=== PATIENT | female | born 1985 | race Caucasian/White ===

== ENCOUNTER 2018-02-07 14:25 | Outpatient (CLI) | payer MEDICAID ==
[~2018-02-07 14:25] MED LIST: IBUP-1051 PO
== END 2018-02-07 23:59 | disposition home or self-care (01) ==
LOC: RAD 14:25
PROVIDERS: ATTEND Family Medicine
DX: G40.909 Epilepsy, unspecified, not intractable, without status epilepticus (principal); F17.200 Nicotine dependence, unspecified, uncomplicated; Z98.890 Other specified postprocedural states; Z88.0 Allergy status to penicillin; Z88.1 Allergy status to other antibiotic agents
CPT/HCPCS: 95816

== ENCOUNTER 2019-11-19 15:39 | Inpatient (IN) | payer MEDICAID ==
[~2019-11-19] VITALS: Ht 175.3 cm; Wt 140.5 kg
[2019-11-19] MEDS ORDERED: normal saline 1000ML IV soln IV ONE (17:40)
[2019-11-19] MEDS ORDERED: clindamycin 600mg/D5W 50ml 50 ML IV ONE (17:40)
[2019-11-19 18:16] LABS: BASOPHILS % (AUTO) 0.2 % (0-1); EOSINOPHILS # (AUTO) 0.1 X10'3 (0-0.9); EOSINOPHILS % (AUTO) 0.4 % (0-6); HEMATOCRIT 37.5 % (35.0-45.0); HEMOGLOBIN 12.5 g/dl (12.0-16.0); LYMPHOCYTES # (AUTO) 1.5 X10'3 (1.1-4.8); LYMPHOCYTES % (AUTO) 6.9 % (21-51); MEAN CORPUSCULAR HEMOGLOBIN 29.3 PG (27.0-31.0); MEAN CORPUSCULAR HGB CONC 33.5 g/dL (33.0-36.5); MEAN CORPUSCULAR VOLUME 87.6 FL (78-98); MEAN PLATELET VOLUME 7.5 FL (7.4-10.4); MONOCYTES # (AUTO) 0.7 X10'3 (0-0.9); MONOCYTES % (AUTO) 3.2 % (2-12); NEUTROPHILS # (AUTO) 19.5 X10'3 (1.8-7.7); NEUTROPHILS % (AUTO) 89.3 % (42-75); PLATELET COUNT 280 X10'3 (140-440); RED BLOOD COUNT 4.28 X10'6 (4.20-5.60); RED CELL DISTRIBUTION WIDTH 12.7 % (11.5-14.5); WHITE BLOOD COUNT 21.8 X10'3 (4.5-11.0)
[2019-11-19 18:33] LABS: ALANINE AMINOTRANSFERASE 24 U/L (12-78); ALBUMIN 3.1 G/DL (3.4-5.0); ALBUMIN/GLOBULIN RATIO 0.8 (1.1-1.5); ALKALINE PHOSPHATASE 77 IU/L (46-116); ANION GAP 6 (8-16); BILIRUBIN,TOTAL 0.6 MG/DL (0.1-1.0); BLOOD UREA NITROGEN 9 MG/DL (7-18); BUN/CREATININE RATIO 9.5 (6.6-38.0); CALCIUM 9.3 MG/DL (8.5-10.1); CHLORIDE 99 MMOL/L (99-107); CREATININE 0.95 MG/DL (0.40-0.90); GLUCOSE 104 MG/DL (70-104); SODIUM 133 MMOL/L (135-145); TOTAL CARBON DIOXIDE 28.1 MMOL/L (24-32); eGFR 68 ML/MIN
[2019-11-19 18:35] LABS: ASPARTATE AMINO TRANSFERASE 17 U/L (10-37)
[2019-11-19 18:43] LABS: POTASSIUM 2.9 MMOL/L (3.5-5.1)
[2019-11-19] MEDS ORDERED: potassium Cl 10 mEq/100mL bag IV ONE (18:45)
[2019-11-19 19:12] LABS: MAGNESIUM 1.9 MG/DL (1.5-2.4)
[2019-11-19 19:12] LABS: URINE HCG NEGATIVE (NEG)
[2019-11-19] MEDS ORDERED: magnesium 2GM in 50ml NS 50 ML IV PRN (20:25)
[2019-11-19] MEDS ORDERED: potassium Cl 20 mEq SR tablet PO PRN (20:25)
[2019-11-19] MEDS ORDERED: ondansetron/PF 4mg/2ml inj IV PRN (20:25)
[2019-11-19] MEDS ORDERED: acetaminophen 325mg tablet PO PRN ×2 (20:25)
[2019-11-19] MEDS ORDERED: HYDROcodone/acetaminophen 5mg/325mg tablet PO PRN (20:25)
[2019-11-19] MEDS ORDERED: mag hydrox/Alum hydrox/simeth 30ml oral suspension PO PRN (20:25)
[2019-11-19] MEDS ORDERED: magnesium 4gm in 100ml NS 100 ML IV PRN (20:25)
[2019-11-19] MEDS ORDERED: vancomycin inj 1,000 MG in normal saline 250ml IV soln 250 ML IV ONE (20:25)
[2019-11-19] MEDS ORDERED: magnesium hydroxide 30ml (MOM) UD suspension PO PRN (20:25)
[2019-11-19] MEDS ORDERED: potassium CL 10mEq/100ml bag 100 ML IV PRN ×2 (20:25)
[2019-11-19] MEDS: normal saline 1000ml 1,000 ML IV SCH (21:22)
[2019-11-19] MEDS: VANCOmycin 1250MG/NS 250ml Bag 250 ML IV SCH (21:22)
[2019-11-19] MEDS: HYDROcodone/acetaminophen 10/325mg tab PO PRN (21:23)
[2019-11-19 23:08] LABS: CLARITY,URINE CLOUDY (Clear); COLOR,URINE YELLOW (Yellow); GLUCOSE, URINE NEGATIVE (Neg); KETONES,URINE NEGATIVE (Neg); LEUKOCYTE ESTERASE ,URINE NEGATIVE (Neg); NITRITES, URINE NEGATIVE (Neg); OCCULT BLOOD,URINE NEGATIVE (Neg); PH,URINE 5.5 (4.8-8.0); PROTEIN,URINE TRACE mg/dl (Neg); UA COLLECTION TYPE NON-SPECIFIED; UROBILINOGEN,URINE 0.2 E.U/dL (0.2-1.0)
[2019-11-19 23:13] LABS: AMORPHOUS URATES 3+; BACTERIA,URINE NONE SEEN /HPF (Neg); RBC,URINE NONE SEEN /HPF (0-2); SQUAMOUS EPITHELIAL CELL,UR MODERATE /LPF (FEW); WBC,URINE 0-4 /HPF (0-4)
--- NOTE | 2019-11-20 02:16 | NUR ---
pt requested snack as did not eat much food yesterday. apple juice and sandwich provided.
[2019-11-20] MEDS: HYDROcodone/acetaminophen 10/325mg tab PO PRN ×2 (05:24→14:12)
--- NOTE | 2019-11-20 05:31 | NUR ---
pt woke to use bathroom and reports 8/10 pain in bilateral legs, more so with the left leg. norco 10/325 administered as prn order states.
[2019-11-20] MEDS: normal saline 1000ml 1,000 ML IV SCH ×2 (06:21→08:32)
--- NOTE | 2019-11-20 06:30 | NUR ---
patient received on bed asleep on high fowlers.
[2019-11-20 07:00] VITALS: BP 133/63
[2019-11-20 07:16] VITALS: BP 107/56
[2019-11-20] MEDS: K and/or MAG REPLACEMENT MC SCH ×2 (07:41→20:00)
[2019-11-20] MEDS: cefepime 2g/NS 100ml ADVANTAGE 100 ML IV SCH ×2 (08:32→20:01)
[2019-11-20 08:56] LABS: BASOPHILS % (AUTO) 0.1 % (0-1); EOSINOPHILS # (AUTO) 0.2 X10'3 (0-0.9); EOSINOPHILS % (AUTO) 1.7 % (0-6); LYMPHOCYTES # (AUTO) 1.1 X10'3 (1.1-4.8); LYMPHOCYTES % (AUTO) 8.2 % (21-51); MEAN CORPUSCULAR HEMOGLOBIN 29.5 PG (27.0-31.0); MEAN CORPUSCULAR HGB CONC 33.5 g/dL (33.0-36.5); MEAN CORPUSCULAR VOLUME 88.1 FL (78-98); MEAN PLATELET VOLUME 7.8 FL (7.4-10.4); MONOCYTES # (AUTO) 0.8 X10'3 (0-0.9); MONOCYTES % (AUTO) 5.4 % (2-12); NEUTROPHILS # (AUTO) 11.9 X10'3 (1.8-7.7); NEUTROPHILS % (AUTO) 84.6 % (42-75); PLATELET COUNT 245 X10'3 (140-440); RED BLOOD COUNT 3.74 X10'6 (4.20-5.60)
[2019-11-20 09:39] LABS: ALBUMIN 2.4 G/DL (3.4-5.0); ANION GAP 5 (8-16); BLOOD UREA NITROGEN 7 MG/DL (7-18); BUN/CREATININE RATIO 9.3 (6.6-38.0); CALCIUM 8.1 MG/DL (8.5-10.1); CHLORIDE 106 MMOL/L (99-107); CREATININE 0.75 MG/DL (0.40-0.90); GLUCOSE 93 MG/DL (70-104); MAGNESIUM 1.6 MG/DL (1.5-2.4); POTASSIUM 3.3 MMOL/L (3.5-5.1); SODIUM 137 MMOL/L (135-145); eGFR 89 ML/MIN
[2019-11-20] MEDS: potassium Cl 20 mEq SR tablet PO PRN ×3 (09:52→18:47)
[2019-11-20] MEDS: VANCOmycin 1250MG/NS 250ml Bag 250 ML IV SCH ×2 (09:53→20:59)
[2019-11-20] MEDS ORDERED: furosemide 20 MG/2 ML vial IV ONE (12:15)
[2019-11-20 18:00] VITALS: BP 129/60
--- NOTE | 2019-11-20 18:16 | NUR ---
Problems reprioritized. Patient report given, questions answered & plan of care reviewed with Barbi Matamoros RN.
--- NOTE | 2019-11-20 18:26 | NUR ---
Patient in room [facility]. I have received report from ERNESTO Dunlap and had the opportunity to ask questions and assume patient care. Addendum: 11/20/19 at 1826 by Myesha Niño RN Amended: Links added.
[2019-11-20] MEDS: lactobacillus rhamnosus 10,000 MMU CELLS/CAPSULE PO SCH (20:00)
[2019-11-20] MEDS: enoxaparin 40mg/0.4ml syringe SQ SCH (20:01)
[2019-11-21] VITALS: BP 110/55
[2019-11-21 05:36] LABS: ALBUMIN 2.4 G/DL (3.4-5.0); ANION GAP 8 (8-16); BLOOD UREA NITROGEN 7 MG/DL (7-18); BUN/CREATININE RATIO 8.5 (6.6-38.0); CALCIUM 8.5 MG/DL (8.5-10.1); CHLORIDE 101 MMOL/L (99-107); CREATININE 0.82 MG/DL (0.40-0.90); GLUCOSE 88 MG/DL (70-104); MAGNESIUM 1.5 MG/DL (1.5-2.4); POTASSIUM 3.4 MMOL/L (3.5-5.1); SODIUM 135 MMOL/L (135-145); TOTAL CARBON DIOXIDE 26.1 MMOL/L (24-32); eGFR 80 ML/MIN
[2019-11-21 06:12] LABS: BASOPHILS % (AUTO) 0.1 % (0-1); EOSINOPHILS # (AUTO) 0.3 X10'3 (0-0.9); EOSINOPHILS % (AUTO) 1.9 % (0-6); HEMOGLOBIN 11.5 g/dl (12.0-16.0); LYMPHOCYTES # (AUTO) 1.7 X10'3 (1.1-4.8); LYMPHOCYTES % (AUTO) 11.7 % (21-51); MEAN CORPUSCULAR HEMOGLOBIN 29.8 PG (27.0-31.0); MEAN CORPUSCULAR HGB CONC 33.9 g/dL (33.0-36.5); MEAN PLATELET VOLUME 7.8 FL (7.4-10.4); MONOCYTES % (AUTO) 6.7 % (2-12); NEUTROPHILS # (AUTO) 11.4 X10'3 (1.8-7.7); NEUTROPHILS % (AUTO) 79.6 % (42-75); PLATELET COUNT 265 X10'3 (140-440); RED BLOOD COUNT 3.86 X10'6 (4.20-5.60); RED CELL DISTRIBUTION WIDTH 13.1 % (11.5-14.5); WHITE BLOOD COUNT 14.3 X10'3 (4.5-11.0)
--- NOTE | 2019-11-21 06:29 | NUR ---
Problems reprioritized. Patient report given, questions answered & plan of care reviewed with ERNESTO Nole.
--- NOTE | 2019-11-21 06:38 | NUR ---
Patient in room [facility]. I have received report from ERNESTO Landon and had the opportunity to ask questions and assume patient care.
--- NOTE | 2019-11-21 06:38 | NUR ---
Patient in room [facility]. I have received report from Barbi Matamoros RN and had the opportunity to ask questions and assume patient care.
[2019-11-21 07:00] VITALS: BP 118/67
[2019-11-21] MEDS: lactobacillus rhamnosus 10,000 MMU CELLS/CAPSULE PO SCH ×2 (07:41→19:46)
[2019-11-21] MEDS: HYDROcodone/acetaminophen 10/325mg tab PO PRN ×2 (07:42→19:46)
[2019-11-21] MEDS: cefepime 2g/NS 100ml ADVANTAGE 100 ML IV SCH ×2 (07:43→19:46)
[2019-11-21] MEDS: K and/or MAG REPLACEMENT MC SCH ×2 (08:00→20:00)
[2019-11-21] MEDS ORDERED: VANCOMYCIN LEVEL IV ONE (08:30)
[2019-11-21] MEDS: VANCOmycin 1250MG/NS 250ml Bag 250 ML IV SCH ×2 (09:56→17:08)
[2019-11-21 11:38] VITALS: BP 126/65
--- NOTE | 2019-11-21 11:57 | NUR ---
Student documentation: I have reviewed all interventions, assessments performed and documented by Lorena OTERO for [facility]. Student Medication Administration: For all medication-pass' in the time frame of 1653-9038, all medications were reviewed, dispensed, administered and documented per hospital policy by Lorena OTERO for [facility].
[2019-11-21] MEDS ORDERED: furosemide 20 MG/2 ML vial IV ONE (13:50)
[2019-11-21] MEDS: potassium Cl 20 mEq SR tablet PO PRN (14:58)
[2019-11-21 18:00] VITALS: BP 117/66
--- NOTE | 2019-11-21 18:00 | NUR ---
Problems reprioritized. Patient report given, questions answered & plan of care reviewed with Barbi Alegria RN.
--- NOTE | 2019-11-21 18:05 | NUR ---
Problems reprioritized. Patient report given, questions answered & plan of care reviewed with Barbi Matamoros RN.
--- NOTE | 2019-11-21 18:12 | NUR ---
Patient in room [facility]. I have received report from ERNESTO Noel and had the opportunity to ask questions and assume patient care. Addendum: 11/21/19 at 1812 by Myesha Niño RN Amended: Links added.
[2019-11-21] MEDS: enoxaparin 40mg/0.4ml syringe SQ SCH (19:46)
[2019-11-22] VITALS: BP 107/54
[2019-11-22] MEDS: VANCOmycin 1250MG/NS 250ml Bag 250 ML IV SCH ×2 (00:47→10:17)
[2019-11-22 05:05] LABS: ALBUMIN 2.3 G/DL (3.4-5.0); ANION GAP 9 (8-16); BLOOD UREA NITROGEN 7 MG/DL (7-18); BUN/CREATININE RATIO 9.1 (6.6-38.0); CALCIUM 8.9 MG/DL (8.5-10.1); CHLORIDE 103 MMOL/L (99-107); CREATININE 0.77 MG/DL (0.40-0.90); GLUCOSE 126 MG/DL (70-104); MAGNESIUM 1.8 MG/DL (1.5-2.4); POTASSIUM 3.4 MMOL/L (3.5-5.1); SODIUM 138 MMOL/L (135-145); TOTAL CARBON DIOXIDE 25.8 MMOL/L (24-32); eGFR 86 ML/MIN
[2019-11-22 05:17] LABS: BASOPHILS % (AUTO) 0.1 % (0-1); EOSINOPHILS # (AUTO) 0.4 X10'3 (0-0.9); EOSINOPHILS % (AUTO) 3.6 % (0-6); HEMATOCRIT 35.5 % (35.0-45.0); HEMOGLOBIN 11.9 g/dl (12.0-16.0); LYMPHOCYTES # (AUTO) 2.1 X10'3 (1.1-4.8); LYMPHOCYTES % (AUTO) 18.9 % (21-51); MEAN CORPUSCULAR HEMOGLOBIN 29.4 PG (27.0-31.0); MEAN CORPUSCULAR HGB CONC 33.4 g/dL (33.0-36.5); MEAN PLATELET VOLUME 7.7 FL (7.4-10.4); MONOCYTES # (AUTO) 0.7 X10'3 (0-0.9); MONOCYTES % (AUTO) 6.7 % (2-12); NEUTROPHILS # (AUTO) 7.7 X10'3 (1.8-7.7); NEUTROPHILS % (AUTO) 70.7 % (42-75); PLATELET COUNT 296 X10'3 (140-440); RED BLOOD COUNT 4.03 X10'6 (4.20-5.60); WHITE BLOOD COUNT 10.9 X10'3 (4.5-11.0)
--- NOTE | 2019-11-22 06:14 | NUR ---
Problems reprioritized. Patient report given, questions answered & plan of care reviewed with ERNESTO Lizarraga.
--- NOTE | 2019-11-22 06:15 | NUR ---
Patient in room [facility]. I have received report from Barbi Matamoros RN and had the opportunity to ask questions and assume patient care.
[2019-11-22 06:30] VITALS: BP 114/72
[2019-11-22] MEDS: K and/or MAG REPLACEMENT MC SCH (07:33)
[2019-11-22] MEDS ORDERED: furosemide 20 MG/2 ML vial IV SCH (08:00)
[2019-11-22] MEDS ORDERED: VANCOMYCIN LEVEL IV ONE (08:30)
[2019-11-22] MEDS: potassium Cl 20 mEq SR tablet PO PRN (09:28)
[2019-11-22] MEDS: lactobacillus rhamnosus 10,000 MMU CELLS/CAPSULE PO SCH (09:28)
[2019-11-22] MEDS: cefepime 2g/NS 100ml ADVANTAGE 100 ML IV SCH (09:29)
[2019-11-22] MEDS ORDERED: SULF1TAB49 PO (09:38)
[2019-11-22 11:00] VITALS: BP 132/72
--- NOTE | 2019-11-22 13:00 | NUR ---
DC inst provided to pt. IV DC'd, tip intact. All belongings sent w/pt. Pt ambulated to front lobby.
[2019-11-22] MEDS ORDERED: vancomycin 1500mg/300ml PREMIX 250 ML IV SCH (17:00)
[2019-11-23] MEDS ORDERED: VANCOMYCIN LEVEL IV ONE (16:30)
== END 2019-11-22 13:00 | disposition home or self-care (01) | DRG 720 ==
LOC: ER 15:39 → ED HOLD 20:21 → SUR 3N 11-20 07:14
PROVIDERS: ADMIT Family Medicine; ATTEND Family Medicine
DX: A41.9 Sepsis, unspecified organism (principal); B95.62 Methicillin resistant Staphylococcus aureus infection as the cause of diseases classified elsewhere; E44.0 Moderate protein-calorie malnutrition; E87.6 Hypokalemia; F15.10 Other stimulant abuse, uncomplicated; L03.115 Cellulitis of right lower limb; F32.9 Major depressive disorder, single episode, unspecified; F41.9 Anxiety disorder, unspecified; E87.1 Hypo-osmolality and hyponatremia; G43.909 Migraine, unspecified, not intractable, without status migrainosus; L03.116 Cellulitis of left lower limb; M79.7 Fibromyalgia; F17.210 Nicotine dependence, cigarettes, uncomplicated; N17.9 Acute kidney failure, unspecified; Z90.49 Acquired absence of other specified parts of digestive tract; Z88.0 Allergy status to penicillin; Z88.1 Allergy status to other antibiotic agents; Z68.42 Body mass index [BMI] 45.0-49.9, adult; Z71.6 Tobacco abuse counseling
CPT/HCPCS: 36415; 71045; 80048; 80053; 80202; 81001; 81025; 83605; 83735; 84145; 85025; 87040; 87081; 93005; 96365; 96368; 99285; G0378; J0692; J1650; J1940; J3370; J3480; J3490; J7030